=== PATIENT | female | born 1985 | race Caucasian/White ===

== ENCOUNTER → 2016-06-11 | Outpatient (CLI) | payer BC | LOC: MOB LAB 15:41 | PROVIDERS: ATTEND Obstetrics & Gynecology | DX: N91.2 Amenorrhea, unspecified (principal); Z32.01 Encounter for pregnancy test, result positive | CPT/HCPCS: 36415; 84702 ==

== ENCOUNTER → 2016-06-13 | Outpatient (CLI) | payer BC | LOC: LAB 16:25 | PROVIDERS: ATTEND Obstetrics & Gynecology | DX: Z32.01 Encounter for pregnancy test, result positive (principal) | CPT/HCPCS: 36415; 84702 ==

== ENCOUNTER → 2016-07-08 | Outpatient (CLI) | payer BC ==
--- NOTE | 2016-07-08 18:17 | DI ---
OBSTETRICAL ULTRASOUND, 07/08/2016 3:39 PM: Clinical History: Missed with demise before 20 weeks of gestation. Previous Exam: None at this facility for this . LMP: 05/15/2016. Intrauterine gestational sac is present, but the sac is empty. No parts are identified. Decidua l reactive change is present. Gestational sac size is 1.4 cm corresponding to an ultrasound EGA of 6 weeks 2 days. Based on the LMP of 05/15/2016, the EGA would be 7 weeks 5 days. The ovaries are normal. There is a hypoechoic area within the left ovary that may be a collapsing hemorrhagic cyst. There is flow through both ovaries. Readin. Empty gestational sac. No parts are identified. I was present for the real-time imaging of the gestational sac. 2. Gestational sac size corresponds to an EGA of 6 weeks 2 days versus the EGA of 7 weeks 5 days bas ed on LMP of 05/15/2016.
== END ==
LOC: US 15:34
PROVIDERS: ATTEND Obstetrics & Gynecology
DX: O02.1 Missed abortion (principal)
CPT/HCPCS: 76817

== ENCOUNTER → 2016-07-13 | Outpatient (CLI) | payer BC ==
[2016-07-14 09:39] LABS: BILIRUBIN,URINE NEGATIVE (NEG); CLARITY,URINE CLEAR (CLEAR); GLUCOSE, URINE (UA) NEGATIVE (NEG); LEUKOCYTE ESTERASE ,URINE NEGATIVE (NEG); NITRATE,URINE NEGATIVE (NEG); OCCULT BLOOD,URINE SMALL (NEG); PH,URINE 5.5 (5.0-8.5); PROTEIN,URINE NEGATIVE (NEG)
[2016-07-14 09:57] LABS: URINE SAMPLE TYPE CLEAN CATCH URINE
[2016-07-14 09:58] LABS: BACTERIA,URINE RARE; SQUAMOUS EPITHELIAL CELL,UR MANY
== END ==
LOC: LAB 20:19
PROVIDERS: ATTEND Obstetrics & Gynecology
DX: R30.0 Dysuria (principal)
CPT/HCPCS: 81001

== ENCOUNTER 2016-07-16 08:23 | Day surgery (SDC) | payer BC ==
[~2016-07-16 08:23] MED LIST: LIDOCAINE W/ SODIUM BICARB 0.5 ML SYR ONE; Lactated Ringers 1,000 ML PRIMARY IV ONE
[2016-07-16] MEDS ORDERED: LIDOCAINE MPF 2% - 5 ML (20 MG/1 ML) ONE (08:41)
[2016-07-16] MEDS ORDERED: Sodium Chloride 0.9% vial 10 ML ONE (08:41)
[2016-07-16] MEDS ORDERED: fentaNYL Inj 100 MCG/2 ML VIAL ONE (08:41)
[2016-07-16] MEDS ORDERED: MIDAZOLAM 5 MG/1 ML ONE (08:41)
[2016-07-16 08:43] VITALS: RESP 14
[2016-07-16 09:30] LABS: BILIRUBIN,URINE NEGATIVE (NEG); CLARITY,URINE CLEAR (CLEAR); GLUCOSE, URINE (UA) NEGATIVE (NEG); LEUKOCYTE ESTERASE ,URINE NEGATIVE (NEG); NITRATE,URINE NEGATIVE (NEG); OCCULT BLOOD,URINE Trace-intact (NEG); PROTEIN,URINE NEGATIVE (NEG); UROBILINOGEN,URINE 0.2 mg/dL (0.2)
[2016-07-16 09:53] LABS: BACTERIA,URINE RARE; SQUAMOUS EPITHELIAL CELL,UR RARE; URINE SAMPLE TYPE CLEAN CATCH URINE
[2016-07-16] MEDS ORDERED: KETOROLAC 30 MG/1 ML VIAL ONE (09:54)
[2016-07-16] MEDS ORDERED: DEXAMETHASONE PF 10 MG/1 ML VIAL ONE (09:54)
[2016-07-16] MEDS ORDERED: IBUPROFEN 800 MG TABLET PO PRN (10:05)
[2016-07-16] MEDS ORDERED: NORMAL SALINE 10 ML SYRINGE FLUSH IVP PRN (10:05)
--- NOTE | 2016-07-16 10:13 | OB.OP.NOTE ---
Operative Report Surgeon: Helene Anesthesia Type: General Anesthesia Provider: Shannon Reynoso CRNA Surgery Date: 07/16/16 Preoperative Diagnosis: Anembryonic gestation Postoperative Diagnosis: Same Procedure: Suction D&C Estimated Blood Loss (mL): 20 Fluids: 1400 ml Complications: None Findings at Surgery: POC. Good cry in all 4 quadrants. 11 cm RV uterus Indications for the Procedure: Anembryonic Gestation. Description of Procedure: The patient was taken to the operating room and placed supine where general laryngeal mask anesthesia was administered. She was then placed in lithotomy position in Claudio stirrups. Examination under anesthesia was unremarkable. She was prepped and draped in the normal sterile fashion and her bladder was emptied of urine with a straight catheter. A weighted speculum was placed in the vagina and the anterior lip of the cervix was grasp with a single-tooth tenaculum. The uterus was sounded to a depth of 11 cm. The cervix was then dilated with Jesús dilators to #30. A 9 mm curved suction curette was then introduced to the uterine fundus and vacuum tubing was applied. Several passages of suction curettage were then made with return of products of conception. Sharp curettage was then performed with good cry noted in all 4 quadrants. A final passage of suction curettage was made with return of no further products of conception or blood. The tenaculum was then removed from the cervix and hemostasis was achieved on the tenaculum site with a figure-of- eight 2-0 Vicryl suture at both sites. There was no bleeding from the cervical os. The weighted speculum was removed from the vagina. Sponge lap and needle counts were correct 2. There were no complications at surgery. The patient left to recovery in good condition. Plan: Routine postop care and discharge to home.
[2016-07-16] MEDS ORDERED: Sodium Chloride 0.9% 1,000 ML PRIMARY IV SCH (10:15)
[2016-07-16 13:07] VITALS: TEMP 98
== END 2016-07-16 11:27 | disposition home or self-care (01) ==
LOC: SDSC 08:23
PROVIDERS: ATTEND Obstetrics & Gynecology
DX: O02.1 Missed abortion (principal)
CPT/HCPCS: 59812; 81001; A4216; J1885; J2704; J3010; J1100; J2001; J2250; J7120

== ENCOUNTER → 2017-01-21 | Outpatient (CLI) | payer SELFPAY | LOC: LAB 10:35 | PROVIDERS: ATTEND Obstetrics & Gynecology | DX: N91.2 Amenorrhea, unspecified (principal) | CPT/HCPCS: 36415; 84702 ==

== ENCOUNTER 2018-01-31 06:04 | Inpatient (IN) ==
[2018-02-01 21:08] VITALS: RESP 16
[2018-02-02 11:36] VITALS: TEMP 98.2
[2018-02-02 12:16] VITALS: BP 132/68; O2SAT 99
== END 2018-02-02 19:30 | disposition home or self-care (01) | DRG 766 ==
LOC: OBOR 06:04 → OBIP 09:57
PROVIDERS: ADMIT Family Medicine; ATTEND Family Medicine